=== PATIENT | male | born 1975 | race Caucasian/White ===

== ENCOUNTER 2017-09-29 00:45 | Emergency (ER) | payer OTHER ==
[2017-09-29 01:05] VITALS: TEMP 97.8
[2017-09-29] MEDS ORDERED: Bacitracin 500 Units/gm Oint Foilpak UD TOP ONE (02:29)
[2017-09-29] MEDS ORDERED: Lidocaine 2% Inj (20ml) INFIL ONE (02:29)
--- NOTE | 2017-09-29 02:29 | C.PDOC ---
History Of Present Illness 42 year old male presents to ED for evaluation of left ear laceration which he sustained prior to arrival s/p slip and fall in the shower. Denies LOC, nausea, vomiting, change in hearing, or bleeding from ear canal. Time Seen by Provider: 09/29/17 01:12 Chief Complaint (Nursing): Abnormal Skin Integrity History Per: Patient History/Exam Limitations: no limitations Onset/Duration Of Symptoms: Hrs Current Symptoms Are (Timing): Still Present Recent travel outside of the [place]: No Additional History Per: Patient Past Medical History Reviewed: Historical Data, Nursing Documentation, Vital Signs Vital Signs: Last Vital Signs Temp 97.8 F 09/29/17 02:46 Pulse 70 09/29/17 02:46 Resp 14 09/29/17 02:46 BP 124/78 09/29/17 02:46 Pulse Ox 95 10/02/17 08:24 - Medical History PMH: Denies: Chronic Kidney Disease - [facility] Procedures OTHER SKIN & SUBQ I D (11/06/14) Family History: States: Unknown Family Hx - Social History Hx Tobacco Use: Yes Hx Alcohol Use: Yes (occasionally) Hx Substance Use: No - Immunization History Hx Tetanus Toxoid Vaccination: Yes (2015) Hx Influenza Vaccination: No Hx Pneumococcal Vaccination: No Review Of Systems Except As Marked, All Systems Reviewed And Found Negative. Constitutional: Negative for: Fever, Chills ENT: Positive for: Ear Pain (left). Negative for: Ear Discharge Gastrointestinal: Negative for: Nausea, Vomiting Skin: Positive for: Other (left ear laceration) Neurological: Negative for: Headache, Dizziness Physical Exam - Physical Exam Appears: Non-toxic, No Acute Distress Skin: Warm, Dry, Other (4cm of laceration to left ear helix and antehelix; through and through at helix) Head: Atraumatic, Normacephalic Eye(s): bilateral: Normal Inspection, PERRL, EOMI Ear(s): Bilateral: Normal Nose: Normal Oral Mucosa: Moist Neck: Normal ROM, Supple Chest: Symmetrical Cardiovascular: Rhythm Regular Respiratory: Normal Breath Sounds, No Accessory Muscle Use Back: Normal Inspection Extremity: Normal ROM Neurological/Psych: Oriented x3, Normal Speech ED Course And Treatment O2 Sat by Pulse Oximetry: 95 (RA) Pulse Ox Interpretation: Normal Progress Note: Pt was given Motrin. Pt was seen and evaluated by Dr. Serrano who instructed closure of the wound. Laceration was repaired, pt tolerated procedure well, without any complications. Difficulty in healing and need for strict follow up with plastics was discussed with patient. Discussed wound care and suture removal in 7-10 days. Laceration - Laceration Repair Left ear Wound Length (In cm): 4 Description Of Wound: Irregular Wound Cleansed With: Betadine, Sterile Saline Anesthesia: Lidocaine 2% Wound Examination: Irrigated With Saline, No FB With Wound Exploration, No Tendon Injury With Wound Exploration Wound Closure: Suture (7) Suture Technique And Material Used: Nylon (5'0) Wound Complexity: Simple Disposition - Disposition Referrals: Devin Diaz MD [Staff Provider] - Disposition: HOME/ ROUTINE Disposition Time: 02:27 Condition: STABLE Additional Instructions: Follow up with plastic referral in 1-2 days for re-evaluation. Suture removal in 7-10 days. Watch for signs of infection including redness, swelling and discharge. 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 - Scribe Statement The provider has reviewed the documentation as recorded by the Gautamibe Coty D[place] All medical record entries made by the Scribe were at my direction and personally dictated by me. I have reviewed the chart and agree that the record accurately reflects my personal performance of the history, physical exam, medical decision making, and the department course for this patient. I have also personally directed, reviewed, and agree with the discharge instructions and disposition.
[2017-09-29 02:47] VITALS: BP 124/78; PULSE 70; RESP 14
[2017-10-02 08:16] VITALS: O2SAT 95
== END 2017-09-29 02:47 | disposition home or self-care (01) ==
LOC: C.ER 00:45
DX: S01.312A Laceration without foreign body of left ear, initial encounter (principal); W18.2XXA Fall in (into) shower or empty bathtub, initial encounter; Y93.E1 Activity, personal bathing and showering; Y92.002 Bathroom of unspecified non-institutional (private) residence as the place of occurrence of the external cause

== ENCOUNTER 2017-10-09 11:37 | Emergency (ER) | payer OTHER ==
[2017-10-09 11:44] VITALS: BP 145/100; PULSE 77; RESP 14; TEMP 98.9; O2SAT 98
--- NOTE | 2017-10-10 23:26 | C.PDOC ---
Time Seen by Provider: 10/09/17 12:33 Chief Complaint (Nursing): Abdominal Pain Past Medical History Vital Signs: Last Vital Signs Temp 98.9 F 10/09/17 11:40 Pulse 77 10/09/17 11:40 Resp 14 10/09/17 11:40 BP 145/100 H 10/09/17 11:40 Pulse Ox 98 10/10/17 23:26 - Medical History PMH: Denies: Chronic Kidney Disease - [facility] Procedures OTHER SKIN & SUBQ I D (11/06/14) Family History: States: Unknown Family Hx - Social History Hx Tobacco Use: Yes Hx Alcohol Use: Yes (occasionally) Hx Substance Use: No - Immunization History Hx Tetanus Toxoid Vaccination: Yes (2015) Hx Influenza Vaccination: No Hx Pneumococcal Vaccination: No ED Course And Treatment O2 Sat by Pulse Oximetry: 98 Medical Decision Making Medical Decision Making: pt not found on stretcher, nurse reports he walked out of ed. Disposition - Disposition Disposition: LEFT W/O BEING SEEN - ER ONLY Disposition Time: 12:45 Condition: UNKNOWN Forms: [facility] (Mohawk) - Clinical Impression Clinical Impression: Nausea, Elevated blood pressure reading
--- NOTE | 2017-10-12 07:08 | CARD ---
APPROVED REPORT EKG Measurement Heart [id number] <Conclusion> Normal sinus rhythm Possible Inferior infarct, age undetermined Abnormal ECG
== END 2017-10-09 12:46 | disposition left against medical advice (07) ==
LOC: C.ER 11:37
DX: R11.0 Nausea (principal); R03.0 Elevated blood-pressure reading, without diagnosis of hypertension; Z02.9 Encounter for administrative examinations, unspecified
CPT/HCPCS: 93005; LWBS0

== ENCOUNTER 2018-11-14 09:52 | Emergency (ER) | payer OTHER ==
[2018-11-14 09:57] VITALS: BP 132/89; PULSE 85; TEMP 98.5; O2SAT 99
[2018-11-14 10:37] VITALS: RESP 18
--- NOTE | 2018-11-14 13:41 | C.PDOC ---
History Of Present Illness 43 y/o male presents to the ER complaining of rash to the neck which has been present for the past 3 days. Patient states that he was working and there was heating insulation. Patient reports that his neck was not covered by clothing at the time.He notes that the rash is pruritic. Denies having CP, SOB, sore throat, fever, and chills. Time Seen by Provider: 11/14/18 10:06 Chief Complaint (Nursing): Abnormal Skin Integrity History Per: Patient History/Exam Limitations: no limitations Onset/Duration Of Symptoms: Days Current Symptoms Are (Timing): Still Present Severity: Moderate Past Medical History Reviewed: Historical Data, Nursing Documentation, Vital Signs Vital Signs: Last Vital Signs Temp 98.5 F 11/14/18 09:56 Pulse 85 11/14/18 09:56 Resp 18 11/14/18 10:36 BP 132/89 11/14/18 09:56 Pulse Ox 99 11/14/18 09:56 - Medical History PMH: No Chronic Diseases Denies: Chronic Kidney Disease Surgical History: No Surg Hx - [facility] Procedures OTHER SKIN & SUBQ I D (11/06/14) Family History: States: No Known Family Hx - Social History Hx Tobacco Use: Yes Hx Alcohol Use: Yes (occasionally) Hx Substance Use: No - Immunization History Hx Tetanus Toxoid Vaccination: Yes (2015) Hx Influenza Vaccination: No Hx Pneumococcal Vaccination: No Review Of Systems Except As Marked, All Systems Reviewed And Found Negative. Constitutional: Negative for: Fever, Chills Cardiovascular: Negative for: Chest Pain Respiratory: Negative for: Shortness of Breath Skin: Positive for: Rash Physical Exam - Physical Exam Appears: Non-toxic, No Acute Distress Skin: Warm, Dry, Rash (maculopapular rash to bilateral neck extending into neckline of shirt) Head: Atraumatic, Normacephalic Eye(s): bilateral: Normal Inspection Nose: Normal Oral Mucosa: Moist Throat: Normal, No Erythema, No Exudate Neck: Supple Chest: Symmetrical Cardiovascular: Rhythm Regular Respiratory: Normal Breath Sounds, No Rales, No Rhonchi, No Wheezing Neurological/Psych: Oriented x3, Normal Speech ED Course And Treatment O2 Sat by Pulse Oximetry: 99 (RA) Pulse Ox Interpretation: Normal Disposition - Disposition Referrals: [facility] Arias Req, [Non-Staff] - Disposition: HOME/ ROUTINE Disposition Time: 10:20 Condition: GOOD Additional Instructions: MOOK CORNELIUS, thank you for letting us take care of you today. Your provider was Adarsh Perry DO and you were treated for RASH. The emergency medical care you received today was directed at your acute symptoms. If you were prescribed any medication, please fill it and take as directed. It may take several days for your symptoms to resolve. Return to the Emergency Department if your symptoms worsen, do not improve, or if you have any other problems. Please contact your doctor or call one of the physicians/clinics you have been referred to that are listed on the Patient Visit Information form that is incl uded in your discharge packet. Bring any paperwork you were given at discharge with you along with any medications you are taking to your follow up visit. Our treatment cannot replace ongoing medical care by a primary care provider outside of the emergency department. Thank you for allowing the [facility] team to be part of your care today. Follow up with your primary care doctor next week if you have any concerns. Prescriptions: Hydrocortisone 1% Cream [Cortizone 1% Cream] 1 unit TP BID #1 tube Instructions: Contact Dermatitis (DC) Forms: [email or web address] (Danish), Work Excuse - Clinical Impression Clinical Impression: Contact dermatitis - Scribe Statement The provider has reviewed the documentation as recorded by the Teri Rodriguez Provider Attestation: All medical record entries made by the Scribe were at my direction and personally dictated by me. I have reviewed the chart and agree that the record accurately reflects my personal performance of the history, physical exam, medical decision making, and the department course for this patient. I have also personally directed, reviewed, and agree with the discharge instructions and disposition.
== END 2018-11-14 10:37 | disposition home or self-care (01) ==
LOC: C.ER 09:52
DX: L25.9 Unspecified contact dermatitis, unspecified cause (principal)

== ENCOUNTER 2018-12-31 11:04 | Outpatient (CLI) | payer OTHER | END 2018-12-31 11:05 | disposition home or self-care (01) | LOC: C.LAB 11:04 → C.RADH 11:05 | DX: Z57.39 Occupational exposure to other air contaminants (principal) ==

== ENCOUNTER 2019-01-18 12:22 | Emergency (ER) | payer OTHER ==
[2019-01-18 12:26] VITALS: BMI 23.3
[2019-01-18 12:30] VITALS: BP 155/105; PULSE 70; RESP 18; TEMP 98.3; O2SAT 96
--- NOTE | 2019-01-18 12:59 | C.PDOC ---
History Of Present Illness 43 y/o male pt presents to the ER c/o slip and fall on the back today at 12 pm. Pt notes the pain is throbbing. Pt denies head injury, LOC, weakness and numbness. - HPI Time Seen by Provider: 01/18/19 12:49 Chief Complaint (Nursing): Trauma History Per: Patient History/Exam Limitations: no limitations Injury Occurred (Timing): Hours Ago: (x1) Location Of Injury: Posterior: Back Past Medical History Reviewed: Historical Data, Nursing Documentation, Vital Signs Vital Signs: Last Vital Signs Temp 98.3 F 01/18/19 12:26 Pulse 70 01/18/19 12:26 Resp 18 01/18/19 12:26 BP 155/105 H 01/18/19 12:26 Pulse Ox 96 01/18/19 12:26 - [facility] Procedures OTHER SKIN & SUBQ I D (11/06/14) Family History: States: Unknown Family Hx - Social History Hx Tobacco Use: Yes Hx Alcohol Use: Yes (occasionally) Hx Substance Use: No - Immunization History Hx Tetanus Toxoid Vaccination: Yes (2015) Hx Influenza Vaccination: No Hx Pneumococcal Vaccination: No Review Of Systems Except As Marked, All Systems Reviewed And Found Negative. Constitutional: Negative for: Other (head injury ) Musculoskeletal: Positive for: Back Pain (from slip and fall ) Neurological: Negative for: Weakness, Numbness, Other (LOC) Physical Exam - Physical Exam Appears: Non-toxic, No Acute Distress Skin: Warm, Dry Head: Atraumatic, Normacephalic, No Tenderness, No Swelling, No Abrasion, No Laceration Eye(s): bilateral: EOMI Neck: Normal ROM, Trachea Midline, Supple Chest: Symmetrical, No Deformity Cardiovascular: Rhythm Regular Respiratory: Normal Breath Sounds, No Accessory Muscle Use Back: No CVA Tenderness, No Vertebral Tenderness, Paraspinal Tenderness (right ), Other (abrasion on right lower back ) Extremity: Normal ROM (x4) Neurological/Psych: Oriented x3, Normal Speech, Normal Cognition, Normal Motor, Normal Sensation ED Course And Treatment O2 Sat by Pulse Oximetry: 96 (RA) Pulse Ox Interpretation: Normal - Other Rad Lumbar spine X-Ray: Read By Radiologist Interpretation: Accession No. : [id number]. Patient Name / ID : ASHLI DELVALLE / [id number]. Exam Date : 01/18/2019 13:04:52 ( Approved ). Study Comment : Sex / Age : M / 43Y. Creator : Serge Bingham MD. Dictator : Serge Bingham MD. Utility Tender Carding : Sweatband Maker : Serge Bingham MD. Approver2 : Report Date : 01/18/2019 13:38:17. My Comment : . Lumbar spine three views. HISTORY: Fall. COMPARISON: None available. 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 Mild dextroscoliotic curvature of the upper lumbar spine. Paravertebral osteophyte formation most prominent at the T9-10 and L1-2 levels on the right. Additional prominent paravertebral osteophyte formation noted at the L2-3 level on the left. Radiopaque rounded density adjacent to the left transverse process of the L3 vertebral body, nonspecific, possibly related to productive change. Intra- abdominal calcification not excluded. Mild loss of height of the T10 vertebral body. Few superior endplate concavities at the L2 and L3 vertebral bodies with associated anterior osteophytosis. Lower level facet hypertrophy and sclerosis. 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 Mild dextroscoliotic curvature of the upper lumbar spine. Paravertebral osteophyte formation most prominent at the T9-10 and L1-2 levels on the right. Additional prominent paravertebral osteophyte formation noted at the L2-3 level on the left. Radiopaque rounded density adjacent to the left transverse process of the L3 vertebral body, nonspecific, possibly related to productive change. Intra-abdominal calcification not excluded. Mild loss of height of the T10 vertebral body. Few superior endplate concavities at the L2 and L3 vertebral bodies with associated anterior osteophytosis. Lower level facet hypertrophy and sclerosis. If pain persists, consider correlation with MRI. Progress Note: Plans: -- LS spine XR. -- Ice pack Disposition - Disposition Disposition: HOME/ ROUTINE Disposition Time: 13:49 Condition: STABLE Additional Instructions: [facility] with [facility] and with your PMD within 1-2 days. Return to ED if feel worse. 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 - Scribe Statement The provider has reviewed the documentation as recorded by the Teri Fitzgerald Do All medical record entries made by the Scribe were at my direction and personally dictated by me. I have reviewed the chart and agree that the record accurately reflects my personal performance of the history, physical exam, medical decision making, and the department course for this patient. I have also personally directed, reviewed, and agree with the discharge instructions and disposition.
--- NOTE | 2019-01-18 13:42 | RAD ---
Lumbar spine three views HISTORY: Fall. COMPARISON: None available. 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 Mild dextroscoliotic curvature of the upper lumbar spine. Paravertebral osteophyte formation most prominent at the T9-10 and L1-2 levels on the right. Additional prominent paravertebral osteophyte formation noted at the L2-3 level on the left. Radiopaque rounded density adjacent to the left transverse process of the L3 vertebral body, nonspecific, possibly related to productive change. Intra-abdominal calcification not excluded. Mild loss of height of the T10 vertebral body. Few superior endplate concavities at the L2 and L3 vertebral bodies with associated anterior osteophytosis. Lower level facet hypertrophy and sclerosis. 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 Mild dextroscoliotic curvature of the upper lumbar spine. Paravertebral osteophyte formation most prominent at the T9-10 and L1-2 levels on the right. Additional prominent paravertebral osteophyte formation noted at the L2-3 level on the left. Radiopaque rounded density adjacent to the left transverse process of the L3 vertebral body, nonspecific, possibly related to productive change. Intra-abdominal calcification not excluded. Mild loss of height of the T10 vertebral body. Few superior endplate concavities at the L2 and L3 vertebral bodies with associated anterior osteophytosis. Lower level facet hypertrophy and sclerosis. If pain persists, consider correlation with MRI.
== END 2019-01-18 14:13 | disposition home or self-care (01) ==
LOC: C.ER 12:22
DX: S30.810A Abrasion of lower back and pelvis, initial encounter (principal); S30.0XXA Contusion of lower back and pelvis, initial encounter; W01.0XXA Fall on same level from slipping, tripping and stumbling without subsequent striking against object, initial encounter; Z72.0 Tobacco use

== ENCOUNTER 2019-02-04 14:33 | Outpatient (CLI) | payer OTHER | END 2019-02-04 14:34 | disposition home or self-care (01) | LOC: C.MRIC 14:33 | DX: M54.5 Low back pain (principal); M15.0 Primary generalized (osteo)arthritis ==